=== PATIENT | male | born 1985 | race Caucasian/White ===

== ENCOUNTER 2023-10-30 10:09 | Outpatient (AMB) | payer OTHER, SELFPAY ==
[2023-10-30 10:20] VITALS: BP 122/72; PULSE 70; TEMP 36.7; O2SAT 96; BMI 27.9
--- NOTE | 2023-10-30 10:20 | MHC.OFFWIV ---
Intake Vital Signs 10/30/23 10:20 Height 6 ft 2 in Weight 217 lb 2 oz BMI 27.9 BP 122/72 Blood Pressure Location Lt brachial Position Sitting Pulse 70 Pulse Source Pulse Oximeter Temp 98.1 F Temp Source Oral Pulse Oximetry (%) 96 Oxygen Delivery Method Room Air Intake Visit Reasons: ear pain Intake Note: Patient is here with left ear pain for 2 days. Patient Tobacco Use Status: Never used Tobacco Allergies No Known Allergies Allergy (Verified 10/30/23 10:26) Medication List - Last Reconciled 10/30/23 by Sonya Hamilton, [facility] albuterol sulfate 90 mcg/actuation 2 puffs inhalation Q6H PRN Do you need a note to return to daycare/school/sports/work: No HPI HPI Comments History of Present Illness Details Here today with L ear pain Has had wax in the past feels like there is something in there has been using at home tx w/o effect wonders if theres water in there from the home tx + tinnititus Pain started about 48 hours ago PFSH Social History Patient Tobacco Use Status: Never used Tobacco e-Cigarette/Vaping Use: Never Used service: No Current occupational status: employed Current occupation: [email or web address] Review of Systems Const All systems reviewed & are unremarkable except as noted in HPI and below Physical Exam Vital Signs: Last Vital Signs Temp 98.1 F 10/30/23 10:20 Pulse 70 10/30/23 10:20 BP 122/72 10/30/23 10:20 Pulse Ox 96 10/30/23 10:20 Oxygen Delivery Method Room Air 10/30/23 10:20 BMI result Body Mass Index 27.9 Const Other: Right EAC w/ nonobs cerumen, easily removed w/ Q-tip. EAC + erythema, TM intact and clear Left EAC cerumen impaction cleared w h202+h20 lavage yielding large amt of cerumen. Pt tolerated. EAC + erythema TM intact Office Procedures Cerumen Removal From which ear canal was the cerumen removed: left Removal: irrigation Notes: patient tolerated procedure well [id number] Irrigation/Lavage Assessment & Plan Assessment & Plan (1) Impacted cerumen of left ear: Code(s): H61.22 - Impacted cerumen, left ear Plan: This note is constructed using voice recognition software. While every effort has been made to ensure accuracy in bologna maker, still errors may have been included Sometimes, these errors may affect the content or meaning of the given sentence . Total time spent caring for the patient today was 30 minutes. This includes time spent before the visit reviewing the chart, time spent during the visit, and time spent after the visit on documentation (2) Bilateral otitis media: Code(s): H66.93 - Otitis media, unspecified, bilateral Qualifiers: Otitis media type: unspecified Qualified Code(s): H66.93 - Otitis media, unspecified, bilateral Plan: . Orders: Orders AMB Cerumen Removal Today H61.22 - Impacted cerumen, left ear Medications: New ciprofloxacin-dexamethasone 0.3-0.1 % 4 drps otic (ears) BID 7.5 mL 0RF 7 days Coding Level of Care Code Est Pt Level 4 (79168) Diagnoses Impacted cerumen of left ear H61.22 Bilateral otitis media, unspecified otitis media type H66.93 Otitis media type: unspecified CPT Codes Office Procedure - CPT: 22069-Hhs Irrigation/Lavage ([id number])
== END 2023-10-30 11:14 | disposition home or self-care (01) ==
PROVIDERS: PCP Hospitalist; Visit Provider Nurse Practitioner Family
DX: H61.22 Impacted cerumen, left ear (principal); H66.93 Otitis media, unspecified, bilateral
CPT/HCPCS: 69209; 99214

== ENCOUNTER 2024-02-20 09:03 | Outpatient (AMB) | payer OTHER, SELFPAY ==
--- NOTE | 2024-02-20 09:23 | A.OFFPC_ITS ---
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 Buying Required: No Allergies No Known Allergies Allergy (Verified 02/20/24 09:40) Medication List - Last Reconciled 02/20/24 by Love Burgos CNP albuterol sulfate 90 mcg/actuation 2 puffs inhalation Q6H PRN Tobacco use date assessed: 02/20/24 Dental Screening Dental Screen Date: 02/20/24 Did you have a dental visit in the last 12 months?: No Did you have a dental problem in the last 6 months where you did not have access to dental care?: No Was dental information given to patient?: Patient has dentist HPI HPI Comments History of Present Illness Details New patient Prior PCP:?She does not recall names of PCP Last office visit/CPE: Almost 20 years Acute issue(s): Myopia - corrected by prescription glasses Meds: Albuterol inhaler He generally eats healthy and sleeps well. He does not exercise PMHx: heartburn (undiagnosed), asthma SurgHx: None FHx: Mom: breast cancer. Dad: lymphoma SocHx: Nonsmoker. Does not drink alcohol. Occasional CBD He is followed by Dr. Gonzalez, [facility] and bank secrecy act officer for annual eye exam [facility] Medical History (Updated 02/20/24 @ 10:12 by Love Burgos CNP) GERD (gastroesophageal reflux disease) Asthma Family History (Updated 02/20/24 @ 09:41 by Yoanna Payne) Father High blood pressure Clotting disorder Cancer Mother Cancer Social History Housing: House Patient Tobacco Use Status: Never used Tobacco e-Cigarette/Vaping Use: Never Used service: No Current occupational status: employed Current occupation: [employer] Cognitive needs: No Hearing needs: No Vision needs: Yes Questionnaire PHQ-9 Over the last 2 weeks, how often have you been bothered by any of the following problems? 1. Little interest or pleasure in doing things: not at all 2. Feeling down, depressed, or hopeless: not at all 3. Trouble falling or staying asleep, or sleeping too much: several days 4. Feeling tired or having little energy: not at all 5. Poor appetite or overeating: not at all 6. Feeling bad about yourself - or that you are a failure or have let yourself or your family down: not at all 7. Trouble concentrating on things, such as reading the newspaper or watching television: not at all 8. Moving or speaking so slowly that other people could have noticed. Or the opposite - being so fidgety or restless that you have been moving around a lot more than usual: not at all 9. Thoughts that you would be better off or of hurting yourself in some way: not at all Total score: 1 Depression Screening Interpretation: Negative Depression Screening Done: Yes 84153 - PHQ-9 Billing: Yes Source: Developed by Drs. Jh Doty, Maribell Higginbotham, Vasquez Pearson and colleagues, with an educational mago from [employer]. Thrive Questionnaire Date Thrive assessed: 02/20/24 I am a: Patient What is your living situation today?: I have a steady place to live Within the past 12 months, did the food you bought not last and you didn't have the money to get more?: Never true Within the past 12 months, did you worry whether your food would run out before you got money to buy more?: Never true Do you have trouble paying for medicines?: No Do you have trouble getting transportation to medical appointments?: No Do you have trouble paying your heating and electricity bill?: No Do you have trouble taking care of your child, family member or friend?: No Do you have trouble with day-to-day activities such as bathing, preparing meals, shopping, managing finances, etc.?: No Are you currently unemployed and looking for a job?: No Are you interested in more education?: Yes Please select the resources that you would like help with: Education Currently or been in a relationship where the following occur: No concerns reported THRIVE Score: 0 AUDIT C Alcohol Use Questionnaire (AUDIT-C) 1. How often do you have a drink containing alcohol?: Never 3. How often do you have six or more drinks on one occasion?: Never Total Score: 0 LOGAN-7 AMB Questionnaire LOGAN-7 Date LOGAN - 7 assessed: 02/20/24 Feeling nervous, anxious, or on edge: 0 = Not at all Not being able to stop or control worryin = Not at all Worrying too much about different things: 0 = Not at all Trouble relaxin = Not at all Being so restless that it is hard to sit still: 0 = Not at all Becoming easily annoyed or irritable: 0 = Not at all Feeling afraid as if something awful might happen: 0 = Not at all Total LOGAN-7 score (0-4 normal; 5-9 mild; 10-14 moderate; 15-21 severe): 0 Source: Developed by Drs. Jh Doty, Maribell Higginbotham, Vasquez Pearson and colleagues, with an educational mago from [employer]. LOGAN-7 Assessment Billing LOGAN-7 Assessment Tool: LOGAN-7 Assessment 31007 ACT Questionnaire In the past 4 weeks, how much of the time did your asthma keep you from getting as much done at work, school or at home?: None of the time During the past 4 weeks, how often have you had shortness of breath?: 3-6 times a week During the past 4 weeks, how often did your asthma symptoms wake you up at night or earlier than usual in the morning?: Not at all During the past 4 weeks, how often have you had to use your rescue inhaler or nebulizer medication?: 1-2 times a week How would you rate your asthma control during the past 4 weeks?: Well controlled Score: 19 Review of Systems Const Details: Denies chills, Denies fatigue, Denies fever(s), Denies headache(s) and Denies weakness HEENT Denies change in vision, Denies dizziness, Denies headache(s), Denies hearing loss, Denies nasal congestion, Denies sinus pain, Denies sinus pressure and Denies sore throat Card Denies chest pain, Denies lightheadedness, Denies dyspnea and Denies other (palpitations) Resp Denies cough, Denies dyspnea and Denies wheezing GI Denies abdominal pain, Denies melena, Denies hematochezia, Denies change in bowel habits, Denies dyspepsia and Denies nausea Denies hematuria and Denies dysuria Musc Denies abnormal gait, Denies myalgias, Denies arthralgias, Denies numbness and Denies tingling Skin/Breast Denies rash, Denies unusual bruising and Denies wounds Neuro Denies abnormal gait, Denies dizziness, Denies headache(s), Denies memory loss, Denies numbness, Denies Sensory deficit (Neuro), Denies tingling and Denies weakness Psych Denies anxiety, Denies depression and Denies memory loss Endo Denies cold intolerance, Denies fatigue, Denies heat intolerance, Denies polydipsia and Denies polyuria Avery/Lymph Denies easy bleeding and Denies easy bruising Aller/Immun Denies wheezing Physical exam (Primary Care) Vital Signs: Last Vital Signs Temp 97.8 F 02/20/24 09:27 Pulse 70 02/20/24 09:27 Resp 16 02/20/24 09:27 BP 128/80 02/20/24 09:27 Pulse Ox 97 02/20/24 09:27 Oxygen Delivery Method Room Air 02/20/24 09:27 BMI result Body Mass Index 27.0 Tobacco/Smoking Status: Tobacco use Status Tobacco use date assessed 02/20/24 02/20/24 09:36 Patient Tobacco Use Status Never used Tobacco 02/20/24 09:25 e-Cigarette/Vaping Use Never Used 02/20/24 09:25 PHQ-9: PHQ-9 Score PHQ-9: Total score 1 02/20/24 09:36 Depression Screening Interpretation: Negative Thrive Assessment: Date of Thrive Assessment Date Thrive assessed 02/20/24 02/20/24 09:36 Currently or been in a relationship where the following occur: No concerns reported Const Other: General: no acute distress, well developed, alert and awake Nutritional Appearance: well nourished Orientation/consciousness: patient oriented x3 HENMT Head: Yes normocephalic and Yes atraumatic Ears: hearing grossly normal bilaterally and TM's normal bilaterally General nose exam: Normal external nose present and Normal nares present Mouth: Normal oral and palatal mucosa present and moist mucous membranes Teeth and gingiva: dentition normal Throat: Yes oropharynx normal Eyes Pupils: Equal, round and reactive pupils present and Pupil accommodation reflex normal EOM: EOMs intact bilaterally Neck Neck: Yes normal visual inspection, Yes no lymphadenopathy and Yes trachea midline Thyroid: Thyroid normal Carotids: no bruits Lymphatic: no lymphadenopathy noted Chest Chest palpation & inspection: normal inspection of the chest Resp Effort & Inspection: normal respiratory effort Auscultation: clear to auscultation bilaterally Cardio Rate: regular rate Rhythm: regular rhythm Heart sounds: S1 normal heart sound present, S2 normal heart sound present, no gallops, no murmurs and no rubs Bruits: no abdominal aortic bruits and no carotid bruits GI Palpation (GI): No Abdominal aortic bruit present, Soft to palpation, nontender, No hepatosplenomegaly present and No Rebound tenderness present Auscultation: normal bowel sounds General: Yes no CVA tenderness Back/Spine/Pelvis Back: no CVA tenderness Cervical Spine: cervical ROM normal and No Cervical spine tenderness Thoracic/Lumbar Spine: thoraco-lumbar ROM normal, No pain with thoraco-lumbar ROM, No thoracic spinal tenderness and No lumbar spinal tenderness Skin General: warm and dry. Normal skin color. Normal skin turgor Lesions: no lesions Rashes: no rashes Trauma: no lacerations or abrasions Wounds: no wounds Nails: normal Neuro General: patient oriented x3, gait normal and CN's II-XI intact bilaterally Cranial nerves: Yes Equal, round and reactive pupils present Cognition (Neuro): normal cognition Gait exam (Neuro): Normal gait present Motor exam (neuro): 5/5 motor strength present throughout Sensory Exam: No Sensory deficit (Neuro) Deep tendon reflexes (DTR's): Right patellar reflex intensity grade: 2+ and Left patellar reflex intensity grade: 2+ Extrem General: Yes normal to inspection, No edema and No calf tenderness Psych Appearance: grossly normal Affect: normal affect Attitude: cooperative Thought process: Normal thought process present Assessment and Plan Assessment & Plan (1) Normal physical examination, routine: Code(s): Z00.00 - Encounter for general adult medical examination without abnormal findings Plan: No significant physical restrictions or limitations noted Continue current treatment regimen Healthy diet and routine exercise encouraged Encouraged to schedule an appointment with his dentist for routine dental care Advised to get blood work done and follow-up for a telehealth visit for labs review in 2-3 weeks Return sooner with symptoms or concerns Verbalized understanding and agreed with the treatment plan (2) H/O heartburn: Code(s): Z87.898 - Personal history of other specified conditions Plan: No acute symptoms (3) Asthma: Code(s): J45.909 - Unspecified asthma, uncomplicated Plan: ACT score is 19, partially controlled asthma Continue current treatment regimen Continue follow-up with sales order specialist as planned Verbalized understanding and agreed with the treatment plan (4) Myopia of both eyes: Code(s): H52.13 - Myopia, bilateral Plan: Corrected by prescription glasses Annual eye exam by Optometry (5) Laboratory tests ordered as part of a complete physical exam (CPE): Code(s): Z00.00 - Encounter for general adult medical examination without abnormal findings Plan: Fasting labs ordered as part of a complete physical exam. Advised to fast for at least 10 hours before getting labs drawn. May drink water Verbalized understanding and agreed with treatment plan. Orders: Orders Complete Blood Count Auto Diff Today Z00.00 - Encounter for general adult medical examination without abnormal findings Comprehensive [place]. Panel Fast Today Z00.00 - Encounter for general adult medical examination without abnormal findings Lipid Panel Today Z00.00 - Encounter for general adult medical examination without abnormal findings TSH reflex Free T4 Today Z00.00 - Encounter for general adult medical examination without abnormal findings UA CC w/rflx Micro + Cult Today Z00.00 - Encounter for general adult medical examination without abnormal findings Coding Level of Care Code New Pt Prev Care 18-39yr(68401 Diagnoses Normal physical examination, routine Z00.00 H/O heartburn Z87.898 Asthma J45.909 Myopia of both eyes H52.13 Laboratory tests ordered as part of a complete physical exam (CPE) Z00.00 Additional Codes LOGAN-7 Assessment Billing - LOGAN-7 Assessment Tool: LOGAN-7 Assessment 53022 ([id number])
[2024-02-20 09:27] VITALS: BP 128/80; PULSE 70; RESP 16; TEMP 36.6; O2SAT 97; BMI 27.0
== END 2024-02-20 09:59 | disposition home or self-care (01) ==
PROVIDERS: Visit Provider Nurse Practitioner Family
DX: Z00.00 Encounter for general adult medical examination without abnormal findings (principal); Z87.898 Personal history of other specified conditions; J45.909 Unspecified asthma, uncomplicated; H52.13 Myopia, bilateral
CPT/HCPCS: 99395

== ENCOUNTER 2024-02-20 10:25 | Outpatient (REF) | payer OTHER, SELFPAY ==
[2024-02-20 14:27] LABS: Appearance Urine Clear; Color Urine Yellow; Glucose Urine UA Negative (Negative); Leukocyte Esterase Urine Negative (Negative); Nitrite Urine Negative (Negative); Urine Blood Negative (Negative); Urine Ketones Trace mg/dL (Negative); Urine Protein Negative (Neg-Trace)
[2024-02-20 14:27] LABS: MANUAL DIFF FLAG NO
[2024-02-20 14:34] LABS: Basophils Percent Auto 0.4 % (0-2); Eosinophils Absolute Auto 0.2 X10*3/uL (0.0-0.4); Eosinophils Percent Auto 3.8 % (0-4); Hemoglobin 16.1 g/dl (14.0-18.0); Imm Gran Abs Auto 0.01 X10*3/uL (0.00-0.03); Imm Gran Pct Auto 0.2 % (0.0-0.4); Lymphocytes Absolute Auto 1.5 X10*3/uL (1.2-4.9); Lymphocytes Percent Auto 33.1 % (20-40); Mean Corpuscular HGB Conc 32.9 g/dl (31.0-36.0); Mean Corpuscular Hemoglobin 28.7 pg (27.0-33.0); Mean Corpuscular Volume 87.3 fL (80.0-98.0); Mean Platelet Volume 10.7 fL (9.4-12.4); Monocytes Absolute Auto 0.5 X10*3/uL (0.1-1.2); Monocytes Percent Auto 11.7 % (2-11); Neutrophils Absolute Auto 2.3 x10*3/uL (2.0-8.3); Neutrophils Percent Auto 50.8 % (45-73); Platelet Count 254 X10*3/uL (160-400); Red Blood Count 5.61 X10*6/uL (4.60-5.80); Red Cell Distribution Width 12.8 % (11.0-16.0); White Blood Count 4.5 X10*3/uL (4.8-10.8)
[2024-02-20 14:53] LABS: Alanine Aminotransferase 31 U/L (0-40); Albumin Level 4.6 g/dL (3.5-5.0); Alkaline Phosphatase 60 U/L (39-117); Anion Gap 11 (12-20); Aspartate Amino Transferase 19 U/L (5-37); Blood Urea Nitrogen 14 mg/dL (9-16); Calcium 9.5 mg/dL (8.4-10.2); Carbon Dioxide 30 mmol/L (22-29); Chloride 104 mmol/L (96-108); Cholesterol 181 mg/dL (<200); Estimated Glomerular Filt Rate > 60; Glucose Fasting 80 mg/dL (60-99); HDL Cholesterol 37 mg/dL (>40); LDL Cholesterol Calculated 113 mg/dL (<100); Potassium 3.4 mmol/L (3.3-5.1); Sodium 142 mmol/L (135-145); Total Protein 7.4 g/dL (6.5-8.0); Triglycerides 157 mg/dL (<150)
[2024-02-20 15:09] LABS: TSH reflex Free T4 2.27 uIU/mL (0.32-4.0)
== END 2024-02-20 10:26 | disposition home or self-care (01) ==
LOC: HO.WFDLDS 10:25
PROVIDERS: Visit Provider Nurse Practitioner Family
DX: Z00.00 Encounter for general adult medical examination without abnormal findings (principal)
CPT/HCPCS: 36415; 80053; 80061; 81003; 84443; 85025

== ENCOUNTER 2024-03-11 12:53 | Outpatient (AMB) | payer OTHER, SELFPAY ==
--- NOTE | 2024-03-11 10:31 | MHC.PC.OV ---
Intake Visit Reasons: labs review Intake Note: patient here for follow up on labs. 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 Allergies No Known Allergies Allergy (Verified 03/11/24 12:48) Tobacco use date assessed: 02/20/24 Dental Screening Dental Screen Date: 02/20/24 HPI HPI Comments History of Present Illness Details 38-year-old male presents for telehealth visit for review of recent lab results He offers no complaints and denies acute symptoms at this time [facility] Medical History (Updated 03/11/24 @ 10:38 by Love Burgos CNP) GERD (gastroesophageal reflux disease) Asthma Family History (Updated 02/20/24 @ 09:41 by oYanna Payne) Father High blood pressure Clotting disorder Cancer Mother Cancer Social History (Updated 02/20/24 @ 09:39 by Yoanna Payne) Housing: House Patient Tobacco Use Status: Never used Tobacco e-Cigarette/Vaping Use: Never Used service: No Current occupational status: employed Current occupation: [employer] Cognitive needs: No Hearing needs: No Vision needs: Yes Questionnaire Thrive Questionnaire Date Thrive assessed: 02/20/24 LOGAN-7 AMB Questionnaire LOGAN-7 Date LOGAN - 7 assessed: 02/20/24 Source: Developed by Drs. Jh Doty, Maribell Higginbotham, Vasquez Pearson and colleagues, with an educational mago from [employer]. Review of Systems Const Details: Const Denies chills, Denies fatigue, Denies fever(s), Denies headache(s) and Denies weakness ENT Denies dizziness and Denies headache(s) Card Denies chest pain, Denies lightheadedness, Denies dyspnea and Denies other (Palpitations) Resp Denies cough, Denies dyspnea, Denies wheezing and Denies other ( shortness of breath) GI Denies abdominal pain, Denies melena, Denies hematochezia, Denies change in bowel habits, Denies dyspepsia and Denies nausea Denies hematuria and Denies dysuria Musc Denies abnormal gait, Denies myalgias, Denies arthralgias, Denies numbness and Denies tingling Skin/Breast Denies rash, Denies unusual bruising and Denies wounds Neuro Denies abnormal gait, Denies dizziness, Denies headache(s), Denies memory loss, Denies numbness, Denies Sensory deficit (Neuro), Denies tingling and Denies weakness Psych Denies anxiety, Denies depression, Denies memory loss Endo Denies cold intolerance, Denies fatigue, Denies heat intolerance, Denies polydipsia and Denies polyuria Aller/Immun Denies wheezing Physical exam (Primary Care) Tobacco/Smoking Status: Tobacco use Status Tobacco use date assessed 02/20/24 03/11/24 10:37 Patient Tobacco Use Status Never used Tobacco 03/11/24 10:37 e-Cigarette/Vaping Use Never Used 03/11/24 10:37 Thrive Assessment: Date of Thrive Assessment Date Thrive assessed 02/20/24 03/11/24 10:37 Const Other: Telehealth visit. No physical exam Telehealth Telehealth Telehealth Platform: Telephone Location of provider rendering services: practice address Location of patient: address on file Patient Identification confirmed using: Name, : Yes Telehealth method: voice only Patient verbally consented to treatment: Yes Patient verbally consented to billing insurance company: Yes Patient informed of any privacy concerns related to visit: Yes Assessment and Plan Assessment & Plan (1) Dyslipidemia: Code(s): E78.5 - Hyperlipidemia, unspecified Plan: Recent labs reviewed with the patient; unremarkable findings except for slightly elevated triglycerides level, 157, and slightly low HDL level, 37 Advised to limit foods high in saturated fat and avoid foods high in trans fat Routine exercise encouraged Will recheck lipid panel level in 4 months Advised to fast for 10-12 hours, may drink water only, and get blood work done before his next visit Follow-up in 4 months for an office visit or telehealth or sooner with symptoms or concerns Verbalized understanding and agreed with the treatment plan Orders: Orders Lipid Panel 4 Months E78.5 - Hyperlipidemia, unspecified Coding Level of Care Code Tele New Pt Level 3 (64808) Diagnoses Dyslipidemia E78.5 Time Spent (min) 10
== END 2024-03-11 15:12 | disposition home or self-care (01) ==
LOC: HO.HMGFM 12:53
PROVIDERS: Visit Provider Nurse Practitioner Family
DX: E78.5 Hyperlipidemia, unspecified (principal)
CPT/HCPCS: 99441

== ENCOUNTER 2024-09-23 10:22 | Outpatient (REF) | payer BC, SELFPAY ==
--- OUTSIDE RECORDS SUMMARY | 2024-09-23 11:58 | XMS_ITS | Encounter Summary ---
Author Organization [facility] Address [address] [place] [address] Care Team Providers Care Clinical Dermatologist Name Role Phone Pcp, No Primary Care Provider Unavailabl e Encounter Details Date Type Department Care Team (Late Contact Info) Description 11/15/[address] [facility] [place] [address] [place] [phone] Sonja Muir MD [address] [place] [address] Social History Tobacco Use Types Packs/Day Years [...] Support CC [facility] [address] [phone] 11/05/2024 12:00 PM EDT Clinical Support CC [place] [facility] [address] [phone] documented as of this encounter Visit Diagnoses Not on filedocumented in this encounter Care Teams Clinical Dermatologist Relationship Specialty Start Date End Date Pcp, No PCP - General General Medicine 03/25/22 documented as of this encounter
--- OUTSIDE RECORDS SUMMARY | 2024-09-23 11:58 | XMS_ITS | Encounter Summary ---
Author Organization [facility] Address [address] [place] [address] Care Team Providers Care Project Management Professional Name Role Phone Pcp, No Primary Care Provider Unavailabl e Encounter Details Date Type Department Care Team (Late Contact Info) Description 04/15/[address] [facility] [address] [phone] Sonja Muir MD [address] [place] [address] Social History Tobacco Use Types Packs/Day Years [...] CC [facility] [address] [phone] 11/05/2024 12:00 PM EDT Clinical Support [facility] [place] [facility] [address] [phone] documented as of this encounter Visit Diagnoses Not on filedocumented in this encounter Care Teams Project Management Professional Relationship Specialty Start Date End Date Pcp, No PCP - General General Medicine 03/25/22 documented as of this encounter
--- OUTSIDE RECORDS SUMMARY | 2024-09-23 11:58 | XMS_ITS | Clinical Summary ---
Author Organization [facility] Address [address] [place] [address] Care Team Providers Care Lap Hand Tool Name Role Phone Pcp, No Primary Care [...] Office Visit [facility] [address] [phone] Oswaldo Gonzalez MD Allergic rhinitis due to [...] CC [facility] [address] [phone] 11/05/2024 12:00 PM EDT Clinical Support [facility] [place] [facility] [address] [phone] Health Maintenance Due Date Last Done Comments [...] age to complete this topic Care Teams Lap Hand Tool Relationship Specialty Start Date End Date Pcp, No PCP - General General Medicine 03/25/22
--- OUTSIDE RECORDS SUMMARY | 2024-09-23 11:58 | XMS_ITS | Encounter Summary ---
Author Organization [facility] Address [address] [place] [address] Care Team Providers Care Tin Worker Name Role Phone Pcp, No Primary Care Provider Unavailabl e Encounter Details Date Type Department Care Team (Late st Contact Info) Description 07/04/[address] [facility] [address] [phone] Oswaldo Gonzalez MD [address] [place] [address] Social History Tobacco Use Types Packs/Day Years [...] Support CC [facility] [address] [phone] 11/05/2024 12:00 PM EDT Clinical Support [facility] [address] [place] [phone] documented as of this encounter Visit Diagnoses Not on filedocumented in this encounter Care Teams Tin Worker Relationship Specialty Start Date End Date Pcp, No PCP - General General Medicine 03/25/22 documented as of this encounter
--- OUTSIDE RECORDS SUMMARY | 2024-09-23 11:58 | XMS_ITS | Encounter Summary ---
Author Organization [facility] Address [address] [place] [address] Care Team Providers Care Medical Laboratory Assistant Name Role Phone Pcp, No Primary Care Provider Unavailabl e Encounter Details Date Type Department Care Team (Late st Contact Info) Description 04/02/[address] [facility] [address] [phone] Oswaldo Gonzalez MD [address] [place] [address] Social History Tobacco Use Types Packs/Day Years [...] CC [facility] [address] [phone] 11/05/2024 12:00 PM EDT Clinical Support [facility] [address] [place] [phone] documented as of this encounter Visit Diagnoses Not on filedocumented in this encounter Care Teams Medical Laboratory Assistant Relationship Specialty Start Date End Date Pcp, No PCP - General General Medicine 03/25/22 documented as of this encounter
== END 2024-09-23 10:23 | disposition home or self-care (01) ==
LOC: HO.LAB 10:22
DX: J02.9 Acute pharyngitis, unspecified (principal)
CPT/HCPCS: 87880

== ENCOUNTER 2024-09-23 10:22 | Outpatient (AMB) | payer BC, SELFPAY ==
--- NOTE | 2024-09-23 10:35 | AM.OFFWIN_ITS ---
Intake Vital Signs 09/23/24 10:36 Weight 199 lb BP 110/70 Blood Pressure Location Lt brachial Position Sitting Pulse 71 Pulse Source Pulse Oximeter Temp 98.1 F Temp Source Oral Pulse Oximetry (%) 98 Oxygen Delivery Method Room Air Intake Visit Reasons: EP Sore throat Intake Note: Patient here for sore throat that has been present since monday. Patient Tobacco Use Status: Never used Tobacco Allergies No Known Allergies Allergy (Verified 09/23/24 10:36) Do you need a note to return to daycare/school/sports/work: Yes HPI HPI Comments History of Present Illness0 Details 39 y/o male patient who presents to the walk in clinic with c/o Sore- throat since Monday. Reports pain with swallowing. [facility] Medical History (Updated 09/23/24 @ 10:51 by Nohemi Madison NP) Acute pharyngitis GERD (gastroesophageal reflux disease) Asthma Family History (Updated 02/20/24 @ 09:41 by Yoanna Payne MA) Father High blood pressure Clotting disorder Cancer Mother Cancer Social History (Updated 02/20/24 @ 09:39 by Yoanna Payne MA) Housing: House Patient Tobacco Use Status: Never used Tobacco e-Cigarette/Vaping Use: Never Used service: No Current occupational status: employed Current occupation: [employer] Cognitive needs: No Hearing needs: No Vision needs: Yes Review of Systems Const All systems reviewed & are unremarkable except as noted in HPI and below Physical Exam Vital Signs: Last Vital Signs Temp 98.1 F 09/23/24 10:36 Pulse 71 09/23/24 10:36 BP 110/70 09/23/24 10:36 Pulse Ox 98 09/23/24 10:36 Oxygen Delivery Method Room Air 09/23/24 10:36 Const General: cooperative, comfortable and no acute distress Orientation/consciousness: patient oriented x3 HEENT Head: Yes normocephalic Ears: external ears normal and TM abnormal with fluid behind the TM General nose exam: Normal external nose present and No nasal discharge present Face and sinus: Yes sinuses nontender Mouth: Normal oral and palatal mucosa present and moist mucous membranes Throat: Yes posterior oropharynx normal and Yes uvula midline Resp Effort & Inspection: normal respiratory effort Auscultation: clear to auscultation bilaterally Cardio Heart sounds: S1 normal heart sound present and S2 normal heart sound present Neuro General: patient oriented x3 Results AMB Rapid Strep AMB Rapid Strep Negative Last Edit by CORRINA Hinds on 09/23/24 11:01 Results Reviewed Results Reviewed: Laboratory Last Values Strep Scn Rapid Clinic Negative 09/23/24 11:00 Assessment & Plan Assessment & Plan (1) Acute pharyngitis: Code(s): J02.9 - Acute pharyngitis, unspecified Qualifiers: Pharyngitis/tonsillitis etiology: unspecified etiology Qualified Code(s): J02.9 - Acute pharyngitis, unspecified Plan: Rapid Strep Negative Ordered SARs OTC cough and cold remedies. Warm fluids with honey. Delisa Tea. Orders: Orders SARS-CoV2/FLU/RSV Today J06.9 - Acute upper respiratory infection, unspecified AMB Rapid Strep Screen Today Z13.9 - Encounter for screening, unspecified Coding Level of Care Code Est Pt Level 4 (44530) Diagnoses Acute pharyngitis, unspecified etiology J02.9 Pharyngitis/tonsillitis etiology: unspecified etiology Time Spent (min) 20
[2024-09-23 10:36] VITALS: BP 110/70; PULSE 71; TEMP 36.7; O2SAT 98
--- OUTSIDE RECORDS SUMMARY | 2024-09-23 11:12 | XMS_ITS | Encounter Summary ---
Author Organization [facility] Address [address] [place] [address] Care Team Providers Care Osteopathic Resident Name Role Phone Pcp, No Primary Care Provider Unavailabl e Encounter Details Date Type Department Care Team (Late Contact Info) Description 04/15/[address] [facility] [address] [phone] Sonja Muir MD [address] [place] [address] Social History Tobacco Use Types Packs/Day Years Used Date Smoking Tobacco: Never Smokeless Tobacco: Never Sex and Gender Information Value Date Recorded Sex Assigned at Not on file Gender Identity Not on file Sexual Orientation Not on file COVID-19 Exposure Response Date Recorded In the last 10 days, have yo u been in contact with someone who was confirmed or suspected to have Coronavirus/COVID-19? No / Unsure 04/15/2022 1:09 PM EDT documented as of this encounter Plan of Treatment Upcoming Encounters Date Type Department Care Team (Late Contact Info) Description 10/15/2024 12:00 PM EST Clinical Support CC [facility] [address] [phone] 11/05/2024 12:00 PM EDT Clinical Support CC [place] [facility] [address] [phone] documented as of this encounter Visit Diagnoses Not on filedocumented in this encounter Care Teams Osteopathic Resident Relationship Specialty Start Date End Date Pcp, No PCP - General General Medicine 03/25/22 documented as of this encounter
--- OUTSIDE RECORDS SUMMARY | 2024-09-23 11:12 | XMS_ITS | Encounter Summary ---
Author Organization [facility] Address [address] [place] [address] Care Team Providers Care Supervisor Riprap Placing Name Role Phone Pcp, No Primary Care Provider Unavailabl e Encounter Details Date Type Department Care Team (Late st Contact Info) Description 07/04/[address] [facility] [address] [phone] Oswaldo Gonzalez MD [address] [place] [address] Social History Tobacco Use Types Packs/Day Years Used Date Smoking Tobacco: Never Smokeless Tobacco: Never Sex and Gender Information Value Date Recorded Sex Assigned at Not on file Gender Identity Not on file Sexual Orientation Not on file documented as of this encounter Plan of Treatment Upcoming Encounters Date Type Department Care Team (Late st Contact Info) Description 10/15/2024 12:00 PM EST Clinical Support CC [facility] [address] [phone] 11/05/2024 12:00 PM EDT Clinical Support CC [facility] [address] [place] [phone] documented as of this encounter Visit Diagnoses Not on filedocumented in this encounter Care Teams Supervisor Riprap Placing Relationship Specialty Start Date End Date Pcp, No PCP - General General Medicine 03/25/22 documented as of this encounter
--- OUTSIDE RECORDS SUMMARY | 2024-09-23 11:12 | XMS_ITS ---
Author Name [facility] Organization Unknown History of Medication Use Medication Directions Dispensed Refills Start Date End Date Stat us albuterol (ProAir HFA) 108 (90 Base) MCG/ACT inhaler Inhale 2 puffs 4 times daily (every 6 hours) as needed for wheezing. 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
--- OUTSIDE RECORDS SUMMARY | 2024-09-23 11:12 | XMS_ITS | Clinical Summary ---
Author Organization [facility] Address [address] [place] [address] Care Team Providers Care Button Sawyer Name Role Phone Pcp, No Primary Care Provider Unavailabl e Allergies No known active allergies Medications Medication Sig Dispensed Refills Start Date End Date Status fluticasone-salmetero l (ADVAIR HFA) 115-21 MCG/ACT inhalerIndications:Mi ld intermittent asthma without complication Inhale 2 puffs 2 (two) times a day. 1 each 1 11/29/2023 Active albuterol (ProAir HFA) 108 (90 Base) MCG/ACT inhalerIndications:Mi ld intermittent asthma without complication Inhale 2 puffs 4 times daily (every 6 hours) as needed for wheezing. 1 each 1 11/29/2023 Active Azelastine-Fluticason e (Dymista) 137-50 MCG/ACT SuspensionIndications :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 1 spray into each nostril 2 (two) times a day. 1 each 5 02/06/2024 Active azelastine (ASTELIN) 0.1 % nasal sprayIndications:Osiel rgic rhinitis due to animal dander 2 sprays into each nostril 2 (two) times a day. Use in each nostril as directed 1 each 3 07/10/2024 Active predniSONE (DELTASONE) 20 MG tabletIndications:All ergic rhinitis due to animal dander Take 1 tablet (20 mg total) by mouth daily. With food. 10 tablet 07/10/2024 Active Active Problems No known active problems Encounters Date Type Department Care Team Description 07/10/2024 3:30 PM EST Office Visit [facility] [address] [phone] Oswaldo Gonzalez MD 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 (Primary Dx); Allergy to mold; Nasal bleeding from Last 3 Months Immunizations Name Administration Dates Next Due Influenza (AFLURIA/FLUZONE) Inactivated/Split Quadrivalent with Preservative IM 07/04/2023,05/20/2022 Family History Medical History Relation Name Comments Atopy Neg Hx Social History Tobacco Use Types Packs/Day Years Used Date Smoking Tobacco: Never Smokeless Tobacco: Never Sex and Gender Information Value Date Recorded Sex Assigned at Not on file Gender Identity Not on file Sexual Orientation Not on file Last Filed Vital Signs Vital Sign Reading Time Taken Comments Blood Pressure - - Pulse - - Temperature - - Respiratory Rate - - Oxygen Saturation - - Inhaled Oxygen Concentration - - Weight 95.3 kg (210 lb) 07/10/2024 3:27 PM EST Height 188 cm (6' 2 ) 07/10/2024 3:27 PM EST Body Mass Index 26.96 07/10/2024 3:27 PM EST Plan of Treatment Upcoming Encounters Date Type Department Care Team (Late st Contact Info) Description 10/15/2024 12:00 PM EST Clinical Support CC [facility] [address] [phone] 11/05/2024 12:00 PM EDT Clinical Support [facility] [place] [facility] [address] [phone] Health Maintenance Due Date Last Done Comments Hepatitis C Virus Screening 1986 HIV Screening 1999 DTaP/Tdap/Td Vaccines (1 - Tdap) 2005 Hepatitis B Vaccines (1 of 3 - 19+ 3-dose series) 2005 Pneumococcal Vaccine: Pediatric (0-5 Years) and At-Risk Patients (6 to 49 Years) (1 of 2 - PCV) 2005 Influenza Vaccine 03/21/2024 07/04/2023, 05/20/2022, 05/20/2022 COVID-19 Vaccine (3 - 2023-2 5 season) 2024 08/16/2022, 07/21/2021 HPV Vaccines Aged Out No longer eligi ble based on patient's age to complete this topic Care Teams Button Sawyer Relationship Specialty Start Date End Date Pcp, No PCP - General General Medicine 03/25/22
--- OUTSIDE RECORDS SUMMARY | 2024-09-23 11:12 | XMS_ITS | Encounter Summary ---
Author Organization [facility] Address [address] [place] [address] Care Team Providers Care Property Field Adjuster Name Role Phone Pcp, No Primary Care Provider Unavailabl e Encounter Details Date Type Department Care Team (Late Contact Info) Description 11/15/[address] [facility] [place] [address] [place] [phone] Sonja Muir MD [address] [place] [address] Social History Tobacco Use Types Packs/Day Years [...] suspected to have Coronavirus/COVID-19? No / Unsure 11/15/2022 3:34 PM EDT documented as of this encounter Plan of Treatment Upcoming Encounters Date Type Department Care Team (Late Contact Info) Description 10/15/2024 12:00 PM EST Clinical Support [facility] [address] [phone] 11/05/2024 12:00 PM EDT Clinical Support CC [place] [facility] [address] [phone] documented as of this encounter Visit Diagnoses Not on filedocumented in this encounter Care Teams Property Field Adjuster Relationship Specialty Start Date End Date Pcp, No PCP - General General Medicine 03/25/22 documented as of this encounter
--- OUTSIDE RECORDS SUMMARY | 2024-09-23 11:12 | XMS_ITS | Encounter Summary ---
Author Organization [facility] Address [address] [place] [address] Care Team Providers Care Classified Ad Clerk Name Role Phone Pcp, No Primary Care Provider Unavailabl e Encounter Details Date Type Department Care Team (Late st Contact Info) Description 04/02/[address] [facility] [address] [phone] Oswaldo Gonzalez MD [address] [place] [address] Social History Tobacco Use Types Packs/Day Years [...] Support CC [facility] [address] [phone] 11/05/2024 12:00 PM EDT Clinical Support [facility] [address] [place] [phone] documented as of this encounter Visit Diagnoses Not on filedocumented in this encounter Care Teams Classified Ad Clerk Relationship Specialty Start Date End Date Pcp, No PCP - General General Medicine 03/25/22 documented as of this encounter
== END 2024-09-23 10:52 | disposition home or self-care (01) ==
PROVIDERS: Visit Provider Nurse Practitioner Family
DX: Z13.9 Encounter for screening, unspecified (principal); J02.9 Acute pharyngitis, unspecified

== ENCOUNTER 2024-09-23 10:22 | Outpatient (REF) | payer BC, SELFPAY ==
--- OUTSIDE RECORDS SUMMARY | 2024-09-23 15:55 | XMS_ITS | Encounter Summary ---
Author Organization [facility] Address [address] [place] [address] Care Team Providers Care Registered Dental Assistant Name Role Phone Pcp, No Primary Care Provider Unavailabl e Encounter Details Date Type Department Care Team (Late st Contact Info) Description 04/02/[address] [facility] [address] [phone] Oswaldo Gonzalez MD [address] [place] [address] Social History Tobacco Use Types Packs/Day Years [...] Support CC [facility] [address] [phone] 11/05/2024 12:00 PM EDT Clinical Support [facility] [address] [place] [phone] documented as of this encounter Visit Diagnoses Not on filedocumented in this encounter Care Teams Registered Dental Assistant Relationship Specialty Start Date End Date Pcp, No PCP - General General Medicine 03/25/22 documented as of this encounter
--- OUTSIDE RECORDS SUMMARY | 2024-09-23 15:55 | XMS_ITS | Encounter Summary ---
Author Organization [facility] Address [address] [place] [address] Care Team Providers Care Slip Cover Cutter Name Role Phone Pcp, No Primary Care Provider Unavailabl e Encounter Details Date Type Department Care Team (Late Contact Info) Description 11/15/[address] [facility] [place] [address] [place] [phone] Sonja uMir MD [address] [place] [address] Social History Tobacco Use Types Packs/Day Years [...] Support CC [facility] [address] [phone] 11/05/2024 12:00 PM EDT Clinical Support [place] [facility] [address] [phone] documented as of this encounter Visit Diagnoses Not on filedocumented in this encounter Care Teams Slip Cover Cutter Relationship Specialty Start Date End Date Pcp, No PCP - General General Medicine 03/25/22 documented as of this encounter
--- OUTSIDE RECORDS SUMMARY | 2024-09-23 15:55 | XMS_ITS | Encounter Summary ---
Author Organization [facility] Address [address] [place] [address] Care Team Providers Care Structures Technician Name Role Phone Pcp, No Primary Care Provider Unavailabl e Encounter Details Date Type Department Care Team (Late st Contact Info) Description 07/04/[address] [facility] [address] [phone] Oswaldo Gonzalez MD [address] [place] [address] Social History Tobacco Use Types Packs/Day Years [...] Support CC [facility] [address] [phone] 11/05/2024 12:00 PM EDT Clinical Support [facility] [address] [place] [phone] documented as of this encounter Visit Diagnoses Not on filedocumented in this encounter Care Teams Structures Technician Relationship Specialty Start Date End Date Pcp, No PCP - General General Medicine 03/25/22 documented as of this encounter
--- OUTSIDE RECORDS SUMMARY | 2024-09-23 15:55 | XMS_ITS | Clinical Summary ---
Author Organization [facility] Address [address] [place] [address] Care Team Providers Care Facility Assistant Name Role Phone Pcp, No Primary [...] Office Visit [facility] [address] [phone] Oswaldo Gonzalez MD Allergic rhinitis due to [...] Support CC [facility] [address] [phone] 11/05/2024 12:00 PM EDT Clinical Support [facility] [place] [facility] [address] [phone] Health Maintenance Due Date Last Done Comments [...] age to complete this topic Care Teams Facility Assistant Relationship Specialty Start Date End Date Pcp, No PCP - General General Medicine 03/25/22
--- OUTSIDE RECORDS SUMMARY | 2024-09-23 15:55 | XMS_ITS | Encounter Summary ---
Author Organization [facility] Address [address] [place] [address] Care Team Providers Care General Studies Program Chair Name Role Phone Pcp, No Primary Care Provider Unavailabl e Encounter Details Date Type Department Care Team (Late Contact Info) Description 04/15/[address] [facility] [address] [phone] Sonja Muir MD [address] [place] [address] Social History Tobacco Use Types Packs/Day Years [...] Support CC [facility] [address] [phone] 11/05/2024 12:00 PM EDT Clinical Support [facility] [place] [facility] [address] [phone] documented as of this encounter Visit Diagnoses Not on filedocumented in this encounter Care Teams General Studies Program Chair Relationship Specialty Start Date End Date Pcp, No PCP - General General Medicine 03/25/22 documented as of this encounter
[2024-09-23 17:30] LABS: Influenza A PCR NEGATIVE (Negative); Influenza B PCR NEGATIVE (Negative); Resp Syncy Virus RNA Qual PCR NEGATIVE (Negative); SARS COV2 PCR INHOUSE NEGATIVE (Negative)
== END 2024-09-23 10:23 | disposition home or self-care (01) ==
LOC: HO.LNP 10:22
PROVIDERS: Visit Provider Nurse Practitioner Family
DX: J06.9 Acute upper respiratory infection, unspecified (principal)
CPT/HCPCS: 0241U

== ENCOUNTER 2025-04-16 09:03 | Outpatient (AMB) | payer BC, SELFPAY ==
--- NOTE | 2025-04-16 09:30 | MHC.OFFWIV ---
Intake Vital Signs 04/16/25 09:31 Height 6 ft 2 in Weight 217 lb BMI 27.9 BP 120/74 Blood Pressure Location Lt brachial Position Sitting Respiration 15 Pulse 73 Pulse Source Pulse Oximeter Temp 98.3 F Temp Source Oral Pulse Oximetry (%) 97 Oxygen Delivery Method Room Air Intake Visit Reasons: EP Ear pain- rt Intake Note: Pt is here today c/o Lt ear pain x2days Patient Tobacco Use Status: Never used Tobacco Allergies No Known Allergies Allergy (Verified 04/16/25 09:32) HPI HPI Comments History of Present Illness Details History - The patient is a 39-year-old male presenting with right ear pain. - Reports irritation in the right ear for a couple of weeks, suspecting impacted cerumen. - Left ear irritation is present but less severe. - Used hydrogen peroxide for cleaning, possibly causing irritation. - Reports a headache for the past week and a half due to caffeine withdrawal. - He denies cold symptoms, sore throat, cough, or dizziness. - He denies fever or chills. Physical Exam General: Cooperative, healthy appearing, comfortable, no acute distress and well developed Head: Normal to inspection Ears: Right ear with cerumen noted in the canal, TM not visualized. Left ear slightly red in the canal, no cerumen noted, TM is normal, clear, not bulging noted. Face and sinus: Normal facial exam. No TTP of the sinuses. Neck: Normal visual inspection. Full ROM. No lymphadenopathy noted. Respiratory: Normal respiratory effort and able to speak in complete sentences. Clear to auscultation bilaterally. No w/r/r noted. Cardiac: RRR, no m/r/g noted. Normal S1 and S2 noted. Patient was informed and verbally consented to the use of an ambient scribe for clinic note documentation during this visit. [facility] Medical History (Updated 09/23/24 @ 10:51 by Nohemi Madison NP) Acute pharyngitis GERD (gastroesophageal reflux disease) Asthma Family History (Updated 02/20/24 @ 09:41 by Yoanna Payne MA) Father High blood pressure Clotting disorder Cancer Mother Cancer Social History (Updated 02/20/24 @ 09:39 by Yoanna Payne MA) Housing: House Patient Tobacco Use Status: Never used Tobacco e-Cigarette/Vaping Use: Never Used service: No Current occupational status: employed Current occupation: [employer] Cognitive needs: No Hearing needs: No Vision needs: Yes Review of Systems Const All systems reviewed & are unremarkable except as noted in HPI and below Physical Exam Vital Signs: Last Vital Signs Temp 98.3 F 04/16/25 09:31 Pulse 73 04/16/25 09:31 Resp 15 04/16/25 09:31 BP 120/74 04/16/25 09:31 Pulse Ox 97 04/16/25 09:31 Oxygen Delivery Method Room Air 04/16/25 09:31 BMI result Body Mass Index 27.9 Office Procedures Cerumen Removal From which ear canal was the cerumen removed: left Removal: irrigation Notes: patient tolerated procedure well, no complications and ear canal clear [id number] Irrigation/Lavage Assessment & Plan Assessment & Plan (1) Pain, ear: Code(s): H92.09 - Otalgia, unspecified ear Qualifiers: Laterality: bilateral Qualified Code(s): H92.03 - Otalgia, bilateral (2) Cerumen impaction: Code(s): H61.20 - Impacted cerumen, unspecified ear Qualifiers: Laterality: left Qualified Code(s): H61.22 - Impacted cerumen, left ear Plan Most likely cerumen impaction and irritation from digging out the cerumen Plan - Plan to clean the left ear and prescribe steroid drops to alleviate irritation. - Medication will be sent to the pharmacy. - Advised to discontinue the use of hydrogen peroxide to prevent further irritation. - follow up with PCP Orders: Orders AMB Cerumen Removal Today H61.23 - Impacted cerumen, bilateral Medications: New hydrocortisone-acetic acid 1-2 % 4 drps otic (ear) right TID 10 mL 0RF Coding Level of Care Code Est Pt Level 3 (30567) Diagnoses Otalgia of both ears H92.03 Laterality: bilateral Impacted cerumen of left ear H61.22 Laterality: left CPT Codes Office Procedure - CPT: 90146-Xid Irrigation/Lavage ([id number])
[2025-04-16 09:31] VITALS: BP 120/74; PULSE 73; RESP 15; TEMP 36.8; O2SAT 97; BMI 27.9
== END 2025-04-16 10:38 | disposition home or self-care (01) ==
PROVIDERS: PCP Nurse Practitioner Family; Visit Provider Physician Assistant Medical
DX: H92.03 Otalgia, bilateral (principal); H61.22 Impacted cerumen, left ear

== ENCOUNTER → 2025-04-16 09:03 | Outpatient (BNVA) | payer BC, SELFPAY | PROVIDERS: PCP Nurse Practitioner Family; Visit Provider Physician Assistant Medical | DX: H61.23 Impacted cerumen, bilateral (principal); H92.03 Otalgia, bilateral; R51.9 Headache, unspecified | CPT/HCPCS: 69209 ==

== ENCOUNTER 2025-05-13 12:18 | Outpatient (AMB) | payer BC, SELFPAY ==
--- NOTE | 2025-05-13 12:20 | A.OFFPC_ITS ---
Vital Signs 05/13/25 12:25 Height 6 ft 2 in Weight 217 lb 6 oz BMI 27.9 BP 133/72 Blood Pressure Location Lt brachial Position Sitting Respiration 16 Pulse 61 Pulse Source Pulse Oximeter Temp 98.2 F Temp Source Oral Pulse Oximetry (%) 98 Oxygen Delivery Method Room Air Intake Visit Reasons: pre-op surgery Intake Note: patient here for pre -op for Rhinoplasty surgery Development Professional Required: No Allergies No Known Allergies Allergy (Verified 05/13/25 12:39) Medication List - Last Reconciled 05/13/25 by Love Burgos CNP albuterol sulfate 90 mcg/actuation 2 puffs inhalation Q6H PRN fluticasone propion-salmeterol 115-21 mcg/actuation (Advair HFA) 2 puffs inhalation BID Tobacco use date assessed: 05/13/25 Dental Screening Dental Screen Date: 05/13/25 Did you have a dental visit in the last 12 months?: No Did you have a dental problem in the last 6 months where you did not have access to dental care?: No Was dental information given to patient?: No HPI HPI Comments History of Present Illness Details 39-year-old male presents for preop exam ination. He has surgery scheduled for rhinoplasty r/t deviated nasal septum. He offers no complaints and denies acute symtpoms at this time. [facility] Medical History (Updated 05/13/25 @ 12:40 by Love Burgos CNP) Acute pharyngitis GERD (gastroesophageal reflux disease) Asthma Family History (Updated 02/20/24 @ 09:41 by Yoanna Payne MA) Father High blood pressure Clotting disorder Cancer Mother Cancer Social History (Updated 02/20/24 @ 09:39 by Yoanna Payne MA) Housing: House Patient Tobacco Use Status: Never used Tobacco e-Cigarette/Vaping Use: Never Used service: No Current occupational status: employed Current occupation: [employer] Cognitive needs: No Hearing needs: No Vision needs: Yes Questionnaire PHQ-9 Over the last 2 weeks, how often have you been bothered by any of the following problems? 1. Little interest or pleasure in doing things: not at all 2. Feeling down, depressed, or hopeless: not at all 3. Trouble falling or staying asleep, or sleeping too much: not at all 4. Feeling tired or having little energy: not at all 5. Poor appetite or overeating: not at all 6. Feeling bad about yourself - or that you are a failure or have let yourself or your family down: not at all 7. Trouble concentrating on things, such as reading the newspaper or watching television: not at all 8. Moving or speaking so slowly that other people could have noticed. Or the opposite - being so fidgety or restless that you have been moving around a lot more than usual: not at all 9. Thoughts that you would be better off or of hurting yourself in some way: not at all Total score: 0 Depression Screening Interpretation: Negative Depression Screening Done: Yes Source: Developed by Drs. Jh Doty, Maribell Higginbotham, Vasquez Pearson and colleagues, with an educational mago from [employer] Thrive Questionnaire Date Thrive assessed: 02/20/24 I am a: Patient What is your living situation today?: I have a steady place to live Within the past 12 months, did the food you bought not last and you didn't have the money to get more?: Never true Within the past 12 months, did you worry whether your food would run out before you got money to buy more?: Never true Do you have trouble paying for medicines?: No Do you have trouble getting transportation to medical appointments?: No Do you have trouble paying your heating and electricity bill?: No Do you have trouble taking care of your child, family member or friend?: No Do you have trouble with day-to-day activities such as bathing, preparing meals, shopping, managing finances, etc.?: No Are you currently unemployed and looking for a job?: No Are you interested in more education?: Yes Please select the resources that you would like help with: None Currently or been in a relationship where the following occur: I choose not to answer THRIVE Score: 0 AUDIT C Alcohol Use Questionnaire (AUDIT-C) 1. How often do you have a drink containing alcohol?: Monthly or less 2. How many drinks containing alcohol do you have on a typical day when you are drinking?: 1 or 2 3. How often do you have six or more drinks on one occasion?: Never Total Score: 1 LOGAN-7 AMB Questionnaire LOGAN-7 Date LOGAN - 7 assessed: 02/20/24 Feeling nervous, anxious, or on edge: 0 = Not at all Not being able to stop or control worryin = Not at all Worrying too much about different things: 0 = Not at all Trouble relaxin = Not at all Being so restless that it is hard to sit still: 0 = Not at all Becoming easily annoyed or irritable: 0 = Not at all Feeling afraid as if something awful might happen: 0 = Not at all Total LOGAN-7 score (0-4 normal; 5-9 mild; 10-14 moderate; 15-21 severe): 0 Source: Developed by Drs. Jh Doty, Maribell Higginbotham, Vasquez Pearson and colleagues, with an educational mago from [employer] Review of Systems Const Details: Const Denies chills, Denies fatigue, Denies fever(s), Denies headache(s) and Denies weakness ENT Denies dizziness and Denies headache(s) Card Denies chest pain, Denies lightheadedness, Denies dyspnea and Denies other (Palpitations) Resp Denies cough, Denies dyspnea, Denies wheezing and Denies other ( shortness of breath) GI Denies abdominal pain, Denies melena, Denies hematochezia, Denies change in bowel habits, Denies dyspepsia and Denies nausea Denies hematuria and Denies dysuria Musc Denies abnormal gait, Denies myalgias, Denies arthralgias, Denies numbness and Denies tingling Skin/Breast Denies rash, Denies unusual bruising and Denies wounds Neuro Denies abnormal gait, Denies dizziness, Denies headache(s), Denies memory loss, Denies numbness, Denies Sensory deficit (Neuro), Denies tingling and Denies weakness Psych Denies anxiety, Denies depression, Denies memory loss Endo Denies cold intolerance, Denies fatigue, Denies heat intolerance, Denies polydipsia and Denies polyuria Aller/Immun Denies wheezing Physical exam (Primary Care) Vital Signs: Last Vital Signs Temp 98.2 F 05/13/25 12:25 Pulse 61 05/13/25 12:25 Resp 16 05/13/25 12:25 BP 133/72 05/13/25 12:25 Pulse Ox 98 05/13/25 12:25 Oxygen Delivery Method Room Air 05/13/25 12:25 BMI result Body Mass Index 27.9 Tobacco/Smoking Status: Tobacco use Status Tobacco use date assessed 05/13/25 05/13/25 12:28 Patient Tobacco Use Status Never used Tobacco 05/13/25 12:28 e-Cigarette/Vaping Use Never Used 05/13/25 12:28 PHQ-9: PHQ-9 Score PHQ-9: Total score 0 05/13/25 12:28 Depression Screening Interpretation: Negative Thrive Assessment: Date of Thrive Assessment Date Thrive assessed 02/20/24 05/13/25 12:28 Currently or been in a relationship where the following occur: I choose not to answer Const Other: General: no acute distress and well developed Nutritional Appearance: well nourished Orientation/consciousness: patient oriented x3 HENMT Head: Yes normocephalic and Yes atraumatic Eyes General: appearance normal, both eyes and all related structures Pupils: Equal, round and reactive pupils present EOM: EOMs intact bilaterally Resp Effort & Inspection: normal respiratory effort Auscultation: clear to auscultation bilaterally Cardio Rate: regular rate Rhythm: regular rhythm Heart sounds: S1 normal heart sound present, S2 normal heart sound present, no gallops, no murmurs and no rubs GI Palpation (GI): No Abdominal aortic bruit present, Soft to palpation, nontender, No hepatosplenomegaly present and No Rebound tenderness present Auscultation: normal bowel sounds General: Yes no CVA tenderness Back/Spine/Pelvis Back: no CVA tenderness Cervical Spine: cervical ROM normal and No Cervical spine tenderness Thoracic/Lumbar Spine: thoraco-lumbar ROM normal, No pain with thoraco-lumbar ROM, No thoracic spinal tenderness and No lumbar spinal tenderness Extrem General: Yes normal to inspection, No edema and No calf tenderness Skin General: warm and dry. Normal skin color. Normal skin turgor Lesions: no lesions Rashes: no rashes Trauma: no lacerations or abrasions Wounds: no wounds Nails: normal Neuro General: patient oriented x3, gait normal and no focal neuro deficit Cranial nerves: Yes Equal, round and reactive pupils present Cognition (Neuro): normal cognition Gait exam (Neuro): Normal gait present Sensory Exam: No Sensory deficit (Neuro) Psych Appearance: grossly normal Affect: normal affect Attitude: cooperative Thought process: Normal thought process present Coding Level of Care Code Est Pt Level 3 (50301) Diagnoses Preop examination Z. Laboratory tests ordered as part of a complete physical exam (CPE) Z. Assessment & Plan Assessment & Plan (1) Preop examination: Code(s): Z.818 - Encounter for other preprocedural examination Category: Medical Plan: Normal physical exam. Patient is physically stable at this time and has no physical contraindications for rhinoplasty. Comprehensive labs ordered. Advised to perform lab work as planned. He will be cleared for rhinoplasty banding labs results. Follow-up for an extended physical exam. Verbalized understanding and agreed with the plan. (2) Laboratory tests ordered as part of a complete physical exam (CPE): Code(s): Z. - Encounter for general adult medical examination without abnormal findings Category: Medical Plan: Fasting labs ordered as part of a complete physical exam. Advised to fast for at least 10 hours before getting labs drawn. May drink water Verbalized understanding and agreed with treatment plan. Orders: Orders Complete Blood Count Auto Diff Today Z.00 - Encounter for general adult medical examination without abnormal findings, Z - Encounter for other preprocedural examination Lipid Panel Today Z00.00 - Encounter for general adult medical examination without abnormal findings, Z - Encounter for other preprocedural examination UA CC w/rflx Micro + Cult Today Z00.00 - Encounter for general adult medical examination without abnormal findings, Z - Encounter for other preprocedural examination Vitamin D 25-OH Total Today Z00.00 - Encounter for general adult medical examination without abnormal findings Comprehensive [place]frey. Panel Fast Today Z00.00 - Encounter for general adult medical examination without abnormal findings, Z - Encounter for other preprocedural examination Microalbumin, Random (w Creat) Today Z00.00 - Encounter for general adult medical examination without abnormal findings, Z8 - Encounter for other preprocedural examination TSH reflex Free T4 Today Z00.00 - Encounter for general adult medical examination without abnormal findings, Z - Encounter for other preprocedural examination
[2025-05-13 12:25] VITALS: BP 133/72; PULSE 61; RESP 16; TEMP 36.8; O2SAT 98; BMI 27.9
--- OUTSIDE RECORDS SUMMARY | 2025-05-13 15:11 | XMS_ITS | Encounter Summary ---
Author Organization [facility] Address [address] [place] [address] Care Team Providers Care Senior Speech Pathologist Name Role Phone Pcp, No Primary Care Provider Unavailabl e Encounter Details Date Type Department Care Team (Late Contact Info) Description 07/04/[address] [facility] [address] [place] [address] [address] [place] [address] Oswaldo Gonzalez MD [address] [place] [address] Social History Tobacco Use Types Packs/Day Years Used Date Smoking Tobacco: Never Smokeless Tobacco: Never Sex and Gender Information Value Date Recorded Sex Assigned at Not on file Legal Sex Male 11:37 AM EDT Gender Identity Not on file Sexual Orientation Not on file 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 Not on file Not on file documented as of this encounter Plan of Treatment Upcoming Encounters Date Type Department Care Team (Late st Contact Info) Description 05/20/2025 12:00 PM EDT Clinical Support [phone] [facility] [address] [address] 06/17/2025 12:00 PM EDT Clinical Support [phone] [facility] [address] [address] documented as of this encounter Visit Diagnoses Not on filedocumented in this encounter Care Teams Senior Speech Pathologist Relationship Specialty Start Date End Date Pcp, No PCP - General General Medicine 03/25/22 documented as of this encounter
--- OUTSIDE RECORDS SUMMARY | 2025-05-13 15:11 | XMS_ITS | Encounter Summary ---
Author Organization [facility] Address [address] [place] [address] Care Team Providers Care Hyperbaric Nurse Name Role Phone Pcp, No Primary Care Provider Unavailabl e Encounter Details Date Type Department Care Team (Late Contact Info) Description 04/02/[address] [facility] [address] [place] [address] Oswaldo Gonzalez MD [address] [place] [address] [address] [place] [address] Social History Tobacco Use Types Packs/Day Years Used Date Smoking Tobacco: Never Smokeless Tobacco: Never Sex and Gender Information Value Date Recorded Sex Assigned at Not on file Legal Sex Male 11:37 AM EDT Gender Identity Not on file Sexual Orientation Not on file 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 Not on file Not on file documented as of this encounter Plan of Treatment Upcoming Encounters Date Type Department Care Team (Late st Contact Info) Description 05/20/2025 12:00 PM EDT Clinical Support [phone] [facility] [address] [address] 06/17/2025 12:00 PM EDT Clinical Support [phone] [facility] [address] [address] documented as of this encounter Visit Diagnoses Not on filedocumented in this encounter Care Teams Hyperbaric Nurse Relationship Specialty Start Date End Date Pcp, No PCP - General General Medicine 03/25/22 documented as of this encounter
--- OUTSIDE RECORDS SUMMARY | 2025-05-13 15:11 | XMS_ITS | Encounter Summary ---
Author Organization [facility] Address [address] [place] [address] Care Team Providers Care Human Resources Leader Name Role Phone Pcp, No Primary Care Provider Unavailabl e Encounter Details Date Type Department Care Team (Late Contact Info) Description 11/15/[address] [facility] [address] [address] Sonja Muir MD [address] [place] [phone] Social History Tobacco Use Types Packs/Day Years Used Date Smoking Tobacco: Never Smokeless Tobacco: Never Sex and Gender Information Value Date Recorded Sex Assigned at Not on file Legal Sex Male 11:37 AM EDT Gender Identity Not on file Sexual Orientation Not on file 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 No / Unsure 11/15/2022 3:34 PM EDT documented as of this encounter Plan of Treatment Upcoming Encounters Date Type Department Care Team (Late st Contact Info) Description 05/20/2025 12:00 PM EDT Clinical Support [phone] [facility] [address] [address] 06/17/2025 12:00 PM EDT Clinical Support [phone] [facility] [address] [address] documented as of this encounter Visit Diagnoses Not on filedocumented in this encounter Care Teams Human Resources Leader Relationship Specialty Start Date End Date Pcp, Naomi PCP - General General Medicine 03/25/22 documented as of this encounter
--- OUTSIDE RECORDS SUMMARY | 2025-05-13 15:11 | XMS_ITS | Clinical Summary ---
Author Organization [facility] Address [address] [place] [address] Care Team Providers Care Monument Setter Helper Name Role Phone Pcp, No Primary Care Provider Unavailabl e Allergies No known active allergies Medications azelastine (ASTELIN) 0.1 % nasal sprayIndications: 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 2 sprays into each nostril 2 (two) times a day. Use in each nostril as directed 1 each 3 4 Active fluticasone-salme terol (ADVAIR HFA) 115-21 MCG/ACT inhalerIndication s:Mild intermittent asthma without complication Inhale 2 puffs 2 (two) times a day. 1 each 3 5 Active albuterol (ProAir HFA) 108 (90 Base) MCG/ACT inhalerIndication s:Mild intermittent asthma without complication Inhale 2 puffs 4 times daily (every 6 hours) as needed for wheezing. 1 each 3 5 Active OMEprazole (PriLOSEC) 40 MG capsuleIndication s:Gastroesophagea l reflux disease without esophagitis Take 1 capsule (40 mg total) by mouth every morning before breakfast. 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 Not on file Not on file Last Filed Vital Signs Vital Sign Reading Time Taken Comments Blood Pressure - - Pulse - - Temperature - - Respiratory Rate - - Oxygen Saturation - - Inhaled Oxygen Concentration - - Weight 95.3 kg (210 lb) 02/11/2025 11:51 AM EDT Height 188 cm (6' 2 ) 02/11/2025 11:51 AM EDT Body Mass Index 26.96 02/11/2025 11:51 AM EDT Plan of Treatment Upcoming Encounters Date Type Department Care Team (Late st Contact Info) Description 05/20/2025 12:00 PM EDT Clinical Support [phone] [facility] [address] [address] 06/17/2025 12:00 PM EDT Clinical Support [phone] [facility] [address] [address] Health Maintenance Due Date Last Done Comments Hepatitis C Virus Screening 1986 HIV Screening 1999 DTaP/Tdap/Td Vaccines (1 - Tdap) 2005 Hepatitis B Vaccines (1 of 3 - 19+ 3-dose series) 2005 Pneumococcal Vaccine: Pediat rosalia (0-5 Years) and At-Risk Patients (6 to 49 Years) (1 of 2 - PCV) 2005 HPV Vaccines (1 - 3-dose SCDM series) 2013 Influenza Vaccine 03/21/2025 07/04/2023, , 05/20/2022 COVID-19 Vaccine ( - 2024- season) 04/21/20252, 07/21/2021 Insurance [facility] PPO Care Teams Monument Setter Helper Relationship Specialty Start Date End Date Pcp, No PCP - General General Medicine 03/25/22
--- OUTSIDE RECORDS SUMMARY | 2025-05-13 15:11 | XMS_ITS | Encounter Summary ---
Author Organization [facility] Address [address] [place] [address] Care Team Providers Care Certifed Refrigeration Operator Name Role Phone Pcp, No Primary Care Provider Unavailabl e Encounter Details Date Type Department Care Team (Late Contact Info) Description 04/15/[address] [facility] [address] [address] Sonja Muir MD [address] [place] [address] Social History Tobacco Use Types Packs/Day Years Used Date Smoking Tobacco: Never Smokeless Tobacco: Never Sex and Gender Information Value Date Recorded Sex Assigned at Not on file Legal Sex Male 11:37 AM EDT Gender Identity Not on file Sexual Orientation Not on file 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 No / Unsure 04/15/2022 1:09 PM EDT documented as of this encounter Plan of Treatment Upcoming Encounters Date Type Department Care Team (Late Contact Info) Description 05/20/2025 12:00 PM EDT Clinical Support [phone] [facility] [address] [address] 06/17/2025 12:00 PM EDT Clinical Support [phone] [facility] [address] [address] documented as of this encounter Visit Diagnoses Not on filedocumented in this encounter Care Teams Certifed Refrigeration Operator Relationship Specialty Start Date End Date Pcp, Naomi PCP - General General Medicine 03/25/22 documented as of this encounter
--- OUTSIDE RECORDS SUMMARY | 2025-05-13 15:11 | XMS_ITS ---
Author Name [facility] Organization Unknown History of Medication Use Medication Directions Dispensed Refills Start Date End Date Stat us OMEprazole (PriLOSEC) 40 MG capsule Take 1 capsule (40 mg total) by mouth every morning before breakfast. 10/31/2024 active budesonide-formote rol (Symbicort) 80-4.5 MCG/ACT inhaler Inhale 2 puffs 2 (two) times a day. 10/22/2024 active albuterol (ProAir HFA) 108 (90 Base) MCG/ACT inhaler Inhale 2 puffs 4 times daily (every 6 hours) as needed for wheezing. 04/04/2022 11/29/2023 active Advair HFA completed omeprazole completed albuterol sulfate comple alex omeprazole 20 mg capsule,delayed release active Allergies Allergen Reaction Severity Comment Documented Date Source Statu s CAT DANDER [facility]ENTIC DOG DANDER [facility] MOLD [facility]ENT[facility] Problems Problem Status Onset Date Problem Type Date of Resolution Source Allergy to mold [facility] Mild intermittent asthma without complication active [facility] Gastroesophageal reflux disease without esophagitis active [facility] 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 active EncounterDiagnosisAct [facility] Immunizations Vaccine Date Source Lot Number Status Influenza (AFLURIA/FLUZONE) Inactivated/Split Quadrivalent with Preservative IM 07/04/2023 [facility] [id number] completed Influenza (AFLURIA/FLUZONE) Inactivated/Split Quadrivalent with Preservative IM 05/20/2022 [facility] [id number] completed Encounters Encounter Type Encounter Reason Primary Diagnosis Location Date [facility] 04/29/2025 Ambulatory [facility] 04/01/2025 Ambulatory [place] [facility] 02/25/2025 Ambulatory Mild intermittent asthma, uncomplicated Mild intermittent asthma, uncomplicated [facility] 02/11/2025 Ambulatory [facility] 01/28/2025 Ambulatory [facility] 12/31/2024 Ambulatory [facility] 12/10/2024 Ambulatory [facility] 11/05/2024 Ambulatory Mild intermittent asthma, uncomplicated Mild intermittent asthma, uncomplicated [facility] 10/31/2024 Ambulatory Mild intermittent asthma, uncomplicated Mild intermittent asthma, uncomplicated [facility] 10/22/2024 Ambulatory [facility] 10/22/2024 Ambulatory [facility] 09/17/2024 Ambulatory [facility] 08/29/2024 Ambulatory [facility] 07/30/2024 Ambulatory Mild intermittent asthma, uncomplicated Mild intermittent asthma, uncomplicated [facility] 07/10/2024 Ambulatory [facility] 07/09/2024 Ambulatory [facility] 06/11/2024 Ambulatory [facility] 04/30/2024 Ambulatory [facility] 04/02/2024 Ambulatory [facility] 02/27/2024 Ambulatory Mild intermittent asthma, uncomplicated Mild intermittent asthma, uncomplicated [facility] 02/06/2024 Ambulatory [facility] 01/30/2024 Ambulatory [facility] 01/09/2024 Ambulatory [facility] 12/26/2023 Ambulatory [facility] 12/04/2023 Ambulatory [facility] 11/14/2023 Ambulatory [facility] 10/10/2023 Ambulatory [facility] 09/12/2023 Ambulatory [facility] 08/09/2023 Ambulatory Allergic rhinitis du e to animal (cat) (dog) hair and dander Allergic rhinitis due to animal (cat) (dog) hair and dander [facility] 08/08/2023 Ambulatory [facility] 07/04/2023 Ambulatory [facility] 06/13/2023 Ambulatory [facility] 06/06/2023 Ambulatory [facility] 05/09/2023 Ambulatory [facility] 04/19/2023 Ambulatory [facility] 03/14/2023 Ambulatory [facility] 02/14/2023 Ambulatory Allergic rhiniti s due to animal (cat) (dog) hair and dander [facility] 01/31/2023 Ambulatory [facility] 01/20/2023 Ambulatory [facility] 01/03/2023 Ambulatory [facility] 12/20/2022 Ambulatory [facility] 12/06/2022 Ambulatory [facility] 11/15/2022 Ambulatory [facility] 10/28/2022 Ambulatory [facility] 10/14/2022 Ambulatory [facility] 09/30/2022 Ambulatory [facility] 09/16/2022 Ambulatory [facility] 09/02/2022 Ambulatory [facility] 08/16/2022 Ambulatory [facility] 08/12/2022 Ambulatory [facility] 08/05/2022 Ambulatory [facility] 07/28/2022 Ambulatory [facility] 07/18/2022 Ambulatory Allergic rhiniti s due to animal (cat) (dog) hair and dander [facility] 07/18/2022 Ambulatory [facility] 07/13/2022 Ambulatory [facility] 07/05/2022 Ambulatory [facility] 07/01/2022 Ambulatory [facility] 06/28/2022 Ambulatory [facility] 06/24/2022 Ambulatory [facility] 06/21/2022 Ambulatory [facility] 06/17/2022 Ambulatory [facility] 06/14/2022 Ambulatory [facility] 06/07/2022 Ambulatory [facility] 06/03/2022 Ambulatory [facility] 05/31/2022 Ambulatory [facility] 05/27/2022 Ambulatory [facility] 05/25/2022 Ambulatory [facility] 05/20/2022 Ambulatory [facility] 05/18/2022 Ambulatory [facility] 05/11/2022 Ambulatory [facility] 04/29/2022 Ambulatory [facility] 04/22/2022 Ambulatory [facility] 04/15/2022 Ambulatory Allergic rhiniti s due to animal (cat) (dog) hair and dander [facility] 04/04/2022 Care Team Organization Name Specialty Phone Email Start Date End Da te [facility] 05/08/2025 [facility] PCP Poem [facility] 12/12/2024 [facility] PCP,No Primary Care 07/18/2022 [facility] NO PCP Primary Care 05/20/2022 05/20/2022 [facility] 04/04/2022 04/04/2022 [facility] 04/04/2022
== END 2025-05-13 12:49 | disposition home or self-care (01) ==
LOC: HO.HMCFM 12:19
PROVIDERS: PCP Nurse Practitioner Family; Visit Provider Nurse Practitioner Family
DX: Z01.818 Encounter for other preprocedural examination (principal); Z00.00 Encounter for general adult medical examination without abnormal findings

== ENCOUNTER 2025-05-13 12:18 | Outpatient (REF) | payer BC, SELFPAY ==
[2025-05-13 14:27] LABS: Appearance Urine Clear; Glucose Urine UA Negative (Negative); PH 7.0 (5.0-9.0); Specific Gravity - Urine <= 1.005 (1.005-1.025)
[2025-05-13 14:34] LABS: MANUAL DIFF FLAG NO
[2025-05-13 14:40] LABS: Hematocrit 46.8 % (42.0-52.0); Hemoglobin 15.7 g/dl (14.0-18.0); Imm Gran Abs Auto 0.03 X10*3/uL (0.00-0.03); Imm Gran Pct Auto 0.5 % (0.0-0.4); Lymphocytes Absolute Auto 1.7 X10*3/uL (1.2-4.9); Mean Corpuscular HGB Conc 33.5 g/dl (31.0-36.0); Mean Corpuscular Hemoglobin 29.0 pg (27.0-33.0); Mean Corpuscular Volume 86.3 fL (80.0-98.0); NRBC Abs Auto 0.000 X10*3/uL (0.0-0.012); NRBC Pct Auto 0.0 /100WBC (0.0-0.2); Platelet Count 267 X10*3/uL (160-400); Red Blood Count 5.42 X10*6/uL (4.60-5.80); White Blood Count 5.7 X10*3/uL (4.8-10.8)
[2025-05-13 14:58] LABS: Alanine Aminotransferase 34 U/L (0-40); Albumin Level 5.0 g/dL (3.5-5.0); Alkaline Phosphatase 77 U/L (39-117); Anion Gap 11 (12-20); Aspartate Amino Transferase 21 U/L (5-37); Blood Urea Nitrogen 11 mg/dL (9-16); Calcium 9.6 mg/dL (8.4-10.2); Carbon Dioxide 32 mmol/L (22-29); Chloride 104 mmol/L (96-108); Cholesterol 202 mg/dL (<200); Estimated Glomerular Filt Rate > 60; HDL Cholesterol 41 mg/dL (>40); Potassium 4.1 mmol/L (3.3-5.1); Sodium 143 mmol/L (135-145); Total Protein 7.6 g/dL (6.5-8.0); Triglycerides 187 mg/dL (<150)
== END 2025-05-13 12:19 | disposition home or self-care (01) ==
LOC: HO.WFDLDS 12:18
PROVIDERS: PCP Nurse Practitioner Family; Visit Provider Nurse Practitioner Family
DX: Z00.00 Encounter for general adult medical examination without abnormal findings (principal); Z01.818 Encounter for other preprocedural examination; E78.5 Hyperlipidemia, unspecified
CPT/HCPCS: 36415; 80053; 80061; 81003; 82043; 82306; 82570; 84443; 85025; 96127

== ENCOUNTER 2025-06-30 12:21 | Outpatient (AMB) | payer BC, SELFPAY ==
--- NOTE | 2025-06-30 12:26 | MHC.PC.OV ---
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 Pump Required: No Allergies No Known Allergies Allergy (Verified 06/30/25 12:43) Medication List - Last Reconciled 06/30/25 by Love Burgos CNP albuterol sulfate 90 mcg/actuation 2 puffs inhalation Q6H PRN budesonide 0.25 mg inhalation BID fluticasone propion-salmeterol 115-21 mcg/actuation (Advair HFA) 2 puffs inhalation BID Tobacco use date assessed: 06/30/25 Dental Screening Dental Screen Date: 06/30/25 Did you have a dental visit in the last 12 months?: No Did you have a dental problem in the last 6 months where you did not have access to dental care?: No Was dental information given to patient?: Patient has dentist HPI HPI Comments History of Present Illness Details 39-year-old male presents for an extended physical exam. He admits to using his inhalers as prescribed. Acute issue(s) - None Past Medical History - Asthma, dyslipidemia, GERD, myopia, environmental allergies Social History - Nonsmoker. Does not vape. Drinks 2 alcohol beverage occasionally. Consumes cannabis edibles occasionally - Has been making healthy dietary choices. Active but does not exercise. Generally sleep well Health maintenance - Last eye exam was 2 years ago. 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 Gonzalez, [facility] - [facility] Medical History Acute pharyngitis GERD (gastroesophageal reflux disease) Asthma Surgical History (Updated 06/30/25 @ 12:34 by ASHWIN Buckner) History of rhinoplasty Family History Father High blood pressure Clotting disorder Cancer Mother Cancer Social History Housing: House Patient Tobacco Use Status: Never used Tobacco e-Cigarette/Vaping Use: Never Used Second Hand Smoke Exposure: No service: No Current occupational status: employed Current occupation: [employer] Current occupational exposures/hazards: No Cognitive needs: No Hearing needs: No Vision needs: Yes Questionnaire PHQ-9 Over the last 2 weeks, how often have you been bothered by any of the following problems? 1. Little interest or pleasure in doing things: several days 2. Feeling down, depressed, or hopeless: several days 3. Trouble falling or staying asleep, or sleeping too much: not at all 4. Feeling tired or having little energy: not at all 5. Poor appetite or overeating: not at all 6. Feeling bad about yourself - or that you are a failure or have let yourself or your family down: several days 7. Trouble concentrating on things, such as reading the newspaper or watching television: not at all 8. Moving or speaking so slowly that other people could have noticed. Or the opposite - being so fidgety or restless that you have been moving around a lot more than usual: not at all 9. Thoughts that you would be better off or of hurting yourself in some way: not at all Total score: 3 Depression Screening Interpretation: Negative Depression Screening Done: Yes 88324 - PHQ-9 Billing: Yes Source: Developed by Drs. Jh Doty, Maribell Higginbotham, Vasquez Pearson and colleagues, with an educational mago from [employer]. Thrive Questionnaire Date Thrive assessed: 05/13/25 I am a: Patient What is your living situation today?: I have a steady place to live Within the past 12 months, did the food you bought not last and you didn't have the money to get more?: Never true Within the past 12 months, did you worry whether your food would run out before you got money to buy more?: Never true Do you have trouble paying for medicines?: No Do you have trouble getting transportation to medical appointments?: No Do you have trouble paying your heating and electricity bill?: No Do you have trouble taking care of your child, family member or friend?: No Do you have trouble with day-to-day activities such as bathing, preparing meals, shopping, managing finances, etc.?: No Are you currently unemployed and looking for a job?: No Are you interested in more education?: Yes Please select the resources that you would like help with: None Currently or been in a relationship where the following occur: I choose not to answer THRIVE Score: 0 AUDIT C Alcohol Use Questionnaire (AUDIT-C) 1. How often do you have a drink containing alcohol?: Monthly or less 2. How many drinks containing alcohol do you have on a typical day when you are drinking?: 1 or 2 3. How often do you have six or more drinks on one occasion?: Never Total Score: 1 Score Reviewed/Action Taken: Yes LOGAN-7 AMB Questionnaire LOGAN-7 Date LOGAN - 7 assessed: 06/30/25 Feeling nervous, anxious, or on edge: 1 = Several days Not being able to stop or control worryin = Not at all Worrying too much about different things: 0 = Not at all Trouble relaxin = Not at all Being so restless that it is hard to sit still: 0 = Not at all Becoming easily annoyed or irritable: 1 = Several days Feeling afraid as if something awful might happen: 0 = Not at all Total LOGAN-7 score (0-4 normal; 5-9 mild; 10-14 moderate; 15-21 severe): 2 Source: Developed by Drs. Jh Doty, Maribell Higginbotham, Vasquez Pearson and colleagues, with an educational mago from [employer]. LOGAN-7 Assessment Billing LOGAN-7 Assessment Tool: LOGAN-7 Assessment 81904 ACT Questionnaire In the past 4 weeks, how much of the time did your asthma keep you from getting as much done at work, school or at home?: None of the time During the past 4 weeks, how often have you had shortness of breath?: 1-2 times a week During the past 4 weeks, how often did your asthma symptoms wake you up at night or earlier than usual in the morning?: Not at all During the past 4 weeks, how often have you had to use your rescue inhaler or nebulizer medication?: 2-3 times a week How would you rate your asthma control during the past 4 weeks?: Completely controlled ACT Interpretation: Negative Score: 22 Review of Systems Const Details: Denies chills, Denies fatigue, Denies fever(s), Denies headache(s) and Denies weakness HEENT Denies change in vision, Denies dizziness, Denies headache(s), Denies hearing loss, Denies nasal congestion, Denies sinus pain, Denies sinus pressure and Denies sore throat Card Denies chest pain, Denies lightheadedness, Denies dyspnea and Denies other (palpitations) Resp Denies cough, Denies dyspnea and Denies wheezing GI Denies abdominal pain, Denies melena, Denies hematochezia, Denies change in bowel habits, Denies dyspepsia and Denies nausea Denies hematuria and Denies dysuria Musc Denies abnormal gait, Denies myalgias, Denies arthralgias, Denies numbness and Denies tingling Skin/Breast Denies rash, Denies unusual bruising and Denies wounds Neuro Denies abnormal gait, Denies dizziness, Denies headache(s), Denies memory loss, Denies numbness, Denies Sensory deficit (Neuro), Denies tingling and Denies weakness Psych Denies anxiety, Denies depression and Denies memory loss Endo Denies cold intolerance, Denies fatigue, Denies heat intolerance, Denies polydipsia and Denies polyuria Avery/Lymph Denies easy bleeding and Denies easy bruising Aller/Immun Denies wheezing Physical exam (Primary Care) Vital Signs: Last Vital Signs Temp 97.8 F 06/30/25 12:34 Pulse 94 06/30/25 12:34 Resp 16 06/30/25 12:34 BP 132/75 06/30/25 12:34 Pulse Ox 96 06/30/25 12:34 Oxygen Delivery Method Room Air 06/30/25 12:34 BMI result Body Mass Index 27.8 Tobacco/Smoking Status: Tobacco use Status Tobacco use date assessed 06/30/25 06/30/25 12:37 Patient Tobacco Use Status Never used Tobacco 06/30/25 12:28 e-Cigarette/Vaping Use Never Used 06/30/25 12:28 PHQ-9: PHQ-9 Score PHQ-9: Total score 3 06/30/25 13:12 Depression Screening Interpretation: Negative Thrive Assessment: Date of Thrive Assessment Date Thrive assessed 05/13/25 06/30/25 12:28 Currently or been in a relationship where the following occur: I choose not to answer Const Other: General: no acute distress, well developed, alert and awake Nutritional Appearance: well nourished Orientation/consciousness: patient oriented x3 [facility] Head: Yes normocephalic and Yes atraumatic Ears: hearing grossly normal bilaterally and TM's normal bilaterally General nose exam: Normal external nose present and Normal nares present Mouth: Normal oral and palatal mucosa present and moist mucous membranes Teeth and gingiva: dentition normal Throat: Yes oropharynx normal Eyes Pupils: Equal, round and reactive pupils present and Pupil accommodation reflex normal EOM: EOMs intact bilaterally Neck Neck: Yes normal visual inspection, Yes no lymphadenopathy and Yes trachea midline Thyroid: Thyroid normal Carotids: no bruits Lymphatic: no lymphadenopathy noted Chest Chest palpation & inspection: normal inspection of the chest Resp Effort & Inspection: normal respiratory effort Auscultation: clear to auscultation bilaterally Cardio Rate: regular rate Rhythm: regular rhythm Heart sounds: S1 normal heart sound present, S2 normal heart sound present, no gallops, no murmurs and no rubs Bruits: no abdominal aortic bruits and no carotid bruits GI Palpation (GI): No Abdominal aortic bruit present, Soft to palpation, nontender, No hepatosplenomegaly present and No Rebound tenderness present Auscultation: normal bowel sounds General: Yes no CVA tenderness Back/Spine/Pelvis Back: no CVA tenderness Cervical Spine: cervical ROM normal and No Cervical spine tenderness Thoracic/Lumbar Spine: thoraco-lumbar ROM normal, No pain with thoraco-lumbar ROM, No thoracic spinal tenderness and No lumbar spinal tenderness Skin General: warm and dry. Normal skin color. Normal skin turgor Lesions: no lesions Rashes: no rashes Trauma: no lacerations or abrasions Wounds: no wounds Nails: normal Neuro General: patient oriented x3, gait normal and CN's II-XI intact bilaterally Cranial nerves: Yes Equal, round and reactive pupils present Cognition (Neuro): normal cognition Gait exam (Neuro): Normal gait present Motor exam (neuro): 5/5 motor strength present throughout Sensory Exam: No Sensory deficit (Neuro) Deep tendon reflexes (DTR's): Right patellar reflex intensity grade: 2+ and Left patellar reflex intensity grade: 2+ Extrem General: Yes normal to inspection, No edema and No calf tenderness Psych Appearance: grossly normal Affect: normal affect Attitude: cooperative Thought process: Normal thought process present Office Procedures Flu Questionnaire Does the patient have a severe egg allergy?: No Does the patient have severe life threatening allergies?: No Does the patient have a fever or illness today?: No Has the patient ever had Guillain-Monroe Syndrome?: No Has the patient ever had any past reaction to a flu shot?: No Immunizations Fluarix (PF) 45 mcg (15 mcg x 3)/0.5 mL IM syringe Performing Provider: Love Burgos CNP Performing Location: [facility] Administered by: Rose Chino RN on 06/30/25 13:12 Dose Route Admin Location Dispensed Lot Number Expiration Date [employer] 0.5 mL IM Left Deltoid 0.5 mL [id number] 02/17/26 [id number] GLA[employer]OSMITH[employer] VIS Given Date VIS Provided VIS Publication Date 06/30/25 Single Vaccine 24 Eligibility Eligibility Date Funding Source Not VFC Eligible 06/30/25 Private Administration Comments: Patient received two injections in the left deltoid, the flu shot slightly above and to the left and TDaP slightly below and to the right. Boostrix Tdap 2.5 Lf unit-8 mcg-5 Lf/0.5 mL intramuscular syringe Performing Provider: Love Burgos CNP Performing Location: [facility] Administered by: Rose Chino RN on 06/30/25 13:12 Dose Route Admin Location Dispensed Lot Number Expiration Date [employer] 0.5 mL IM Left Deltoid 0.5 mL [id number] 07/18/27 78972-309-43 [employer] Total Dispensed Waste 0.5 mL 0 % VIS Given Date VIS Provided VIS Publication Date 06/30/25 Single Vaccine 21 Eligibility Eligibility Date Funding Source Not VFC Eligible 06/30/25 Private Administration Comments: Patient received two injections in the left deltoid, the flu shot slightly above and to the left and TDaP slightly below and to the right. Coding Level of Care Code Est Pt Prev Care 18-39y(68555) Diagnoses Normal physical examination, routine Z00.00 Hyperlipidemia E78.5 Asthma J45.909 Additional Codes Asthma Control Questionnaire - ACT Interpretation: Negative ([id number]) LOGAN-7 Assessment Billing - LOGAN-7 Assessment Tool: LOGAN-7 Assessment 84993 ([id number]) PHQ-9 - 08594 - PHQ-9 Billing: Yes ([id number]) Assessment & Plan Assessment & Plan (1) Normal physical examination, routine: Code(s): Z00.00 - Encounter for general adult medical examination without abnormal findings Category: Medical Plan: No significant physical limitation noted. Continue current treatment regimen. Healthy diet and routine exercise encouraged. Follow-up for transfer of care with a new provider in 2 months. Return sooner with symptoms or concerns. Verbalized understanding and agreed with the plan. (2) Hyperlipidemia: Code(s): E78.5 - Hyperlipidemia, unspecified Category: Medical Plan: Recent triglyceride, total cholesterol, and LDL levels are elevated, 187, 202, and 124 respectively. He states that he has been eating better after the blood work. He wants to continue with lifestyle changes to improve his cholesterol. Advised to limit foods high in saturated fat and avoid foods high trans fat. Routine exercise encouraged. Fast for 10-12 hours, may drink water, and perform lipid panel blood work 1 week before his next visit. Follow-up for transfer of care with a new provider and hyperlipidemia in 2 months. Return sooner with symptoms or concerns. Verbalized understanding and agreed with the plan. (3) Asthma: Code(s): J45.909 - Unspecified asthma, uncomplicated Category: Medical Plan: ACT score is 22, well controlled asthma. Continue current treatment regimen. Follow-up as needed. Verbalized understanding and agreed with the plan. Orders: Orders Influenza [id number] Immunization Today Z23 - Encounter for immunization TDaP Immunization Today Z23 - Encounter for immunization Lipid Panel Today E78.5 - Hyperlipidemia, unspecified
[2025-06-30 12:34] VITALS: BP 132/75; PULSE 94; RESP 16; TEMP 36.6; O2SAT 96; BMI 27.8
--- OUTSIDE RECORDS SUMMARY | 2025-06-30 14:36 | XMS_ITS | Encounter Summary ---
Author Organization [facility] Address [address] [place] [address] Care Team Providers Care Email Designer Name Role Phone Pcp, No Primary Care Provider Unavailabl e Encounter Details Date Type Department Care Team (Late st Contact Info) Description 11/15/[address] [facility] [address] [place] [address] Sonja Muir MD [address] [place] [id number] Social History Tobacco Use Types Packs/Day Years Used Date Smoking Tobacco: Never Smokeless Tobacco: Never Sex and Gender Information Value Date Recorded Sex Assigned at Not on file Legal Sex Male 11:37 AM EDT Gender Identity Not on file Sexual Orientation Not on file 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 No / Unsure 11/15/2022 3:34 PM EDT documented as of this encounter Plan of Treatment Not on file documented as of this encounter Visit Diagnoses Not on filedocumented in this encounter Care Teams Email Designer Relationship Specialty Start Date End Date Pcp, No PCP - General General Medicine 03/25/22 documented as of this encounter
--- OUTSIDE RECORDS SUMMARY | 2025-06-30 14:36 | XMS_ITS | Encounter Summary ---
Author Organization [facility] Address [address] [place] [address] Care Team Providers Care Metal Patternmaker Name Role Phone Pcp, No Primary Care Provider Unavailabl e Encounter Details Date Type Department Care Team (Late st Contact Info) Description 07/04/[address] [facility] [place] [address] [place] [address] [address] [place] [address] Oswaldo Gonzalez MD [address] [place] [id number] Social History Tobacco Use Types Packs/Day Years Used Date Smoking Tobacco: Never Smokeless Tobacco: Never Sex and Gender Information Value Date Recorded Sex Assigned at Not on file Legal Sex Male 11:37 AM EDT Gender Identity Not on file Sexual Orientation Not on file 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
--- OUTSIDE RECORDS SUMMARY | 2025-06-30 14:36 | XMS_ITS | Encounter Summary ---
Author Organization [facility] Address [address] [place] [address] Care Team Providers Care Ditch Worker Name Role Phone Pcp, No Primary Care Provider Unavailabl e Encounter Details Date Type Department Care Team (Late st Contact Info) Description 04/02/[address] [facility] [address] [place] [id number] Oswaldo Gonzalez MD [address] [place] [address] [address] [place] [address] Social History Tobacco Use Types Packs/Day Years Used Date Smoking Tobacco: Never Smokeless Tobacco: Never Sex and Gender Information Value Date Recorded Sex Assigned at Not on file Legal Sex Male 11:37 AM EDT Gender Identity Not on file Sexual Orientation Not on file 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
--- OUTSIDE RECORDS SUMMARY | 2025-06-30 14:36 | XMS_ITS | Encounter Summary ---
Author Organization [facility] Address [address] [place] [address] Care Team Providers Care Cardiac Nurse Name Role Phone Pcp, No Primary Care Provider Unavailabl e Encounter Details Date Type Department Care Team (Late st Contact Info) Description 04/15/[address] [facility] [address] [place] [address] Sonja Muir MD [address] [place] [address] Social History Tobacco Use Types Packs/Day Years Used Date Smoking Tobacco: Never Smokeless Tobacco: Never Sex and Gender Information Value Date Recorded Sex Assigned at Not on file Legal Sex Male 11:37 AM EDT Gender Identity Not on file Sexual Orientation Not on file 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
--- OUTSIDE RECORDS SUMMARY | 2025-06-30 14:36 | XMS_ITS | Clinical Summary ---
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 Not on file [...] 02/11/2025 11:51 AM EDT Plan of Treatment Health Maintenance Due Date Last Done Comments Hepatitis C Virus Screening 1986 HIV Screening 1999 DTaP/Tdap/Td Vaccines (1 - Tdap) 2005 Hepatitis B Vaccines (1 of 3 - 19+ 3-dose series) 2005 Pneumococcal Vaccine: Pediat rosalia (0-5 Years) and At-Risk Patients (6 to 49 Years) (1 of 2 - PCV) 2005 Influenza Vaccine 03/21/2025 07/04/2023, , 05/20/2022 COVID-19 Vaccine (3 - 2024- season) 2025, 07/21/2021 HPV Vaccines (No Doses Required) Com[facility] Care Teams Correspondence Coordinator Relationship Specialty Start Date End Date Pcp, No PCP - General General Medicine 03/25/22
== END 2025-06-30 15:10 | disposition home or self-care (01) ==
LOC: HO.HMCFM 12:22
PROVIDERS: PCP Nurse Practitioner Family; Visit Provider Nurse Practitioner Family
DX: Z00.00 Encounter for general adult medical examination without abnormal findings (principal); E78.5 Hyperlipidemia, unspecified; J45.909 Unspecified asthma, uncomplicated; Z23 Encounter for immunization

== ENCOUNTER → 2025-06-30 12:21 | Outpatient (BNVA) | payer BC, SELFPAY | PROVIDERS: PCP Nurse Practitioner Family; Visit Provider Nurse Practitioner Family | DX: Z23 Encounter for immunization (principal); E78.5 Hyperlipidemia, unspecified; J45.909 Unspecified asthma, uncomplicated; Z79.899 Other long term (current) drug therapy | CPT/HCPCS: 90471; 90472; 90656; 90715; 96127; 96160 ==